=== PATIENT | male | born 1940 | race Caucasian/White ===

== ENCOUNTER 2018-10-09 06:21 | Inpatient (IN) ==
[~2018-10-09 06:21] MED LIST: MORPHINE SULFATE 15 MG TABLET.SA PO PRN; ROPIVACAINE HCL/PF 100 MG, EPINEPHrine 0.2 MG, KETOROLAC TROMETHAMINE 30 MG in NORMAL S... IJ PRN; TRANEXAMIC ACID 1,000 MG in NORMAL SALINE 100 ML IV PRN; ceFAZolin SODIUM 1 GM VIAL IV PRN
[2018-10-09] MEDS: RINGER'S SOLUTION,LACTATED 1,000 ML IV PRN ×2 (06:52→09:30)
--- NOTE | 2018-10-09 06:59 | ANES ---
Anesthesia Pre Procedure Eval Vitals/Labs: Last Vital Signs Temp 36.6 C 10/09/18 06:32 Pulse 85 10/09/18 06:32 Resp 18 10/09/18 06:32 BP 138/68 10/09/18 06:32 Pulse Ox 97 10/09/18 06:32 HOME MEDICATIONS Enalapril Maleate [Vasotec] 5 mg PO DAILY 03/30/18 [Last Taken 10/09/18 05:30] pantoprazole 40 mg tablet,delayed release 40 mg PO DAILY #30 tab 08/16/18 [Last Taken Unknown] Allergies/Adverse Reactions: Allergies Allergy/AdvReac Type Severity Reaction Status Date / Time No Known Allergies Allergy Verified 10/09/18 06:40 - Planned Procedure Planned Procedure: Left Arthroplasty Total Hip Medication List Reviewed:: Yes Allergies Verified: Yes Medical History (Last Reviewed 10/09/18 @ 06:56 by Dong Card CRNA) COPD (chronic obstructive pulmonary disease) Carpal tunnel syndrome Cough Hypertension Left knee pain Prostate cancer Surgical History (Last Reviewed 10/09/18 @ 06:57 by Dong Card CRNA) Elbow fracture Onset Date: ~1954 left H/O hernia repair Onset Date: ~1944 right inguinal H/O prostatectomy Onset Date: ~2005 [facility] (had radiation) History of colonoscopy Onset Date: 03/30/182005 [facility]-normal. 03/30/18 Dangelo-normal colonic mucosa. History of esophagogastroduodenoscopy (EGD) Onset Date: 03/30/18 03/30/18 Dangelo-Positive H.pylor. Mod to severe chronic gastritis. History of right hip replacement Onset Date: ~2013 Dr Cuevas History of tonsillectomy Onset Date: ~1969 History of total left knee replacement Onset Date: ~2014 Dr Mckenna History of vasectomy Onset Date: ~1966 Family History (Last Reviewed 10/09/18 @ 06:57 by Dong Card CRNA) Father , age 63-PR Diabetes Myocardial infarction Mother , age 80-colon cancer (dx age 77) Cancer colon cancer Hypertension Sister Alive and well Hypertension - Family Anesthesia History Family History:: no untoward family reactions to anesthesia, no familial bleeding tendencies, no family history of clotting disorders, no family history of premature - Airway/Neck/Teeth Within Normal Limits:: Yes Denture Type: Full upper Neck Exam: full range of motion Mallampatti Score: 1 Thyromental (T-M) distance: > 6 cm Mandibulo Hyoid distance: > 3 cm - Respiratory Respiratory History: COPD Respiratory Physical: lungs clear, decreased breath sounds Smoking Status: Former smoker Sleep Apnea currently treated: No Sleep Apnea by current assessment: No - Cardiovascular Cardiac History: hypertension Tolerate Activity: Fair Heart Sounds: S1 & S2, Regular - Anesthesia Assessment and Plan ASA Class: PS, III Anesthesia Type Plan: Spinal
[2018-10-09] MEDS ORDERED: ZOLPIDEM TARTRATE 5 MG TABLET PO PRN (09:44)
[2018-10-09] MEDS ORDERED: MAG HYDROX/ALUMINUM HYD/SIMETH 30 ML UDC PO PRN (09:44)
[2018-10-09] MEDS ORDERED: DEXTROSE 5%-LACTATED RINGERS 1,000 ML IV PRN (09:44)
[2018-10-09] MEDS ORDERED: MAGNESIUM HYDROXIDE 30 ML UDC PO PRN (09:44)
[2018-10-09] MEDS ORDERED: ONDANSETRON HCL/PF 2 MG/ML VIAL IV PRN (09:44)
[2018-10-09] MEDS ORDERED: MORPHINE SULFATE 2 MG/ML DISP.SYRIN IV PRN (09:44)
[2018-10-09] MEDS ORDERED: diphenhydrAMINE HCL 50 MG/ML VIAL IV PRN (09:44)
[2018-10-09] MEDS ORDERED: ACETAMINOPHEN 500 MG TABLET PO PRN (09:44)
--- NOTE | 2018-10-09 09:48 | OR ---
Operative Report - Dictated Report Narrative: Date: 10/09/2018 Preoperative diagnosis: Left hip degenerative joint disease. Postoperative diagnosis: Left hip degenerative joint disease. Procedure: Left Total hip arthroplasty. Surgeon: Abilio Mckenna M.D. [employer] Forms Developer: Jonathan La PA-C (provided an essential set of skilled, educated and assisted with transfer, positioning, prepping, draping, manipulation, traction, irrigation, suturing, and placement of dressings all of which cannot be performed by the available surgical crew) Anesthesia: Spinal and local periarticular joint injection. Complications: None Specimens: Bone for disposal. Estimated blood loss: 100 milliliters. Retained implants: Depuy Villalba size 8 femoral stem high offset. Size 56 millimeter outside diameter 3-hole Redway Gription acetabular cup. 56 millimeter outside by 40 millimeter inside diameter highly cross-linked acetabular liner. 40 millimeter diameter +5 millimeter cobalt chromium femoral head. Cancellous 6.5mm screw 35 millimeter length Indications: Mr Joseph is a 78-year-old female who has had long-standing left hip pain and arthrosis. This patient was followed in my clinic for period of time with significant complaints of left hip pain consistent with arthritic changes. He failed conservative measures including but not limited to activity modification, passage of time, medications, and other conservative measures. Patient wished to proceed with surgical treatment. The risks, benefits, and alternatives were discussed in clinic. The risks of , blood clots, bleeding, infection, nerve/tendon blood vessel/ injury, malposition of components, dislocation and/or instability of joint, intraoperative fracture, postoperative limited range of motion, persistent pain, failure of components, and need for additional procedures. Patient wished to proceed. Consent was obtained after answering all questions. Procedure: After marking the correct extremity on the floor, the patient was taken to the operating room. A timeout was performed. IV antibiotics consisting of Ancef were administered prior to the procedure. A spinal anesthetic was induced by anesthesia. A Carranza catheter was inserted. The patient was then transitioned to a lateral position on a well-padded pegboard. An axillary roll was placed. The head was in neutral position. The non- operative down leg was well-padded with SCD and ABBI hose in place. The arms were supported and padded to protect from any undue pressure on the bony prominences and nerves. A well-padded anterior and posterior pelvic and chest posts were secured in order to maintain a stable position of the pelvis. This was placed so that the pelvis was perpendicular to the floor. The body was in line with the pelvis. Once it was felt that we had protected all the bony prominences and the patient was well secured with a safety belt as well, the leg was pre-scrubbed with alcohol, prepped and draped in a standard sterile fashion. A standard anterior lateral hip incision was marked out over the greater trochanter. Ioban drapes were then placed. The skin incision was then made. Sharp dissection with a scalpel utilizing cautery for hemostasis was carried out down to the gluteus and iliotibial band fascia. This was split in line with the skin incision. The greater trochanter bursa was excised. The anterior and posterior margins of the abductor tendon were identified. The anterior 1/2-1/3 of the tendon was tagged and reflected off the greater trochanter leaving a sleeve of tendon for repair at the completion of the case. This exposed the underlying hip joint capsule. A limb length stitch was placed in the skin and referencedd off a bay on the greater trochanter for evaluation of intraoperative limb lengths. An inverted T-type capsulotomy was made extending this up to the brim of the acetabulum. Using Homans to assist with elevation of the soft tissues off the anterior, superior, and inferior aspects of the femoral neck, the hip was then placed in a figure 4 position and the femoral head was dislocated. With the leg in an externally rotated and adducted position, the cutting flag was utilized in order to bay for a standard femoral neck cut approximately a fingerbreadth above the level of the lesser trochanter. This was done with reference to pre-operative films and overall alignment. This was done while protecting the surrounding soft tissues with Homans. The femoral head was then removed and sized for guidance on preparation of the acetabulum. It was noted that there was loss of articular cartilage on both the femoral head and weightbearing portions of the acetabulum. We then returned the leg to the table and turned our attention to the acetabulum. While protecting the surrounding soft tissues, the labrum and remaining tissue in the fovea were excised using a scalpel and cautery. A series of reamers up to size 56 millimeter were utilized to prepare the acetabulum. The final reamer had good purchase and exposed the bleeding subchondral bone. The acetabulum was then thoroughly irrigated ensuring that all bony and cartilaginous materials were removed, and the final acetabular shell was impacted into place. This was placed in approximately 45 degrees of abduction and 20 degrees of anteversion utilizing the outrigger and body axis for alignment. This had a good press fit. 1 6.5mm cancellous screw was placed in the superior posterior quadrant of the acetabulum. The shell was then thoroughly irrigated and the final polyethylene was impacted into place ensuring that it seated completely. This was then protected with a sponge while we returned our attention to the femur. With the leg in a figure 4 position, utilizing Homans for soft tissue protection, a box cutting osteotome, followed by Charnley awl, followed by serial reamers and broaches were utilized in order to prepare the femur. It was found that a size 8 broach gave good axial and rotational stability. The calcar reamer was utilized in order to clean up the cut edges. The proximal femur was visualized to ensure that there were no signs of fracture. A series of heads and necks were trialed. It was found that a high offset neck and a + 5 femoral head gave good overall stability. There was minimal longitudinal instability. With the leg in the position of sleep, the femoral head was well covered. Hip range of motion was able to reach full extension and external rotation to greater than 75 degrees prior to impingement along the posterior acetabulum. The hip was able to be flexed to greater than 90 degrees with internal rotation greater than 60 degrees prior to anterior impingement. The limb lengths were near equal based on comparison to the contralateral side and the prior placed limb length stitch. At this point it was felt these were the appropriately sized femoral components as well as neck and femoral head. The trial implants were removed. The femur was thoroughly irrigated. The final implants were impacted into place, and the hip was reduced. After ensuring that there was no damage to the proximal femur, the standard periarticular joint injection of ropivacaine, Toradol, and epinephrine were injected into the joint capsule and surrounding soft tissues. Anesthesia then administered intravenous tranexamic acid. The capsule was repaired with a single interrupted #1 Vicryl. The abductor tendon was repaired to the greater trochanter utilizing #5 Ethibond through drill holes. This was oversewn with #1 Vicryl. The fascia was closed with interrupted #1 Vicryl. The wounds were thoroughly irrigated as we closed in layers. The deep and subcutaneous fat layers were closed with 0 and 3-0 Vicryl respectively. The subcutaneous tissue was closed with a running 3-0 Vicryl and the skin sabas. All sponge, needle, blade, and instrument counts were correct prior to closing the wounds. Sterile dressings consisting of xeroform, 4 x 4's, and tape were applied. The patient was awoken and transferred to her hospital bed and then to the postanesthesia care unit in stable condition. Postoperative condition: The plan is to admit to the medical/surgical inpatient floor postoperatively. There will be a projected 1 to 3 day hospital stay. Postoperatively 24 hours of IV antibiotics, pain control, physical therapy, occupational therapy, and medical comanagement will be utilized. Patient will be weightbearing as tolerated with anterior hip precautions. Postoperative films will be obtained in the recovery room.
--- NOTE | 2018-10-09 09:52 | ANES ---
Post Anesthesia Discharge - Transfer of Care Transfer of Care handoff given to nurse: Yes - Discharge from PACU Discharge from PACU when meets criteria: Yes - Alert and comfortable.
[2018-10-09] MEDS: KETOROLAC TROMETHAMINE 15 MG/ML VIAL IV SCH ×3 (10:38→23:15)
--- NOTE | 2018-10-09 10:39 | ANES ---
Post Anesthesia Assessment - Vital Signs Vitals: Last Vital Signs Temp 36.7 C 10/09/18 10:10 Pulse 59 L 10/09/18 10:26 Resp 17 10/09/18 10:26 BP 107/50 10/09/18 10:26 Pulse Ox 97 10/09/18 10:26 Airway Patency: Normal - Mental Status Level Of Consciousness: Awake, Alert, Appropriate - Pain Level Pain Score: 0 - N/V Assessment Nausea/Vomiting Presence: None Dehydration:: No
[2018-10-09] MEDS: ceFAZolin SODIUM 1 GM in DEXTROSE 5 % IN WATER 100 ML IV SCH ×6 (10:52→23:16)
[2018-10-09] MEDS: oxyCODONE HCL/ACETAMINOPHEN 1 TAB TABLET PO PRN ×3 (11:51→21:16)
[2018-10-09] MEDS: MORPHINE SULFATE 15 MG TABLET.SA PO SCH (20:25)
[2018-10-09] MEDS ORDERED: SENNOSIDES/DOCUSATE SODIUM 1 TAB TABLET PO SCH (21:00)
[2018-10-10] MEDS: oxyCODONE HCL/ACETAMINOPHEN 1 TAB TABLET PO PRN ×2 (02:58→07:48)
[2018-10-10] MEDS: KETOROLAC TROMETHAMINE 15 MG/ML VIAL IV SCH ×2 (04:03→11:04)
[2018-10-10 05:48] LABS: Hematocrit 37.8 % (42.0-52.0); Hemoglobin 11.9 gm/dL (13.5-18.0); Mean Cell Volume 88.3 fl (78-100); Mean Corpuscular Hemoglobin 27.8 pg (27-31); Mean Corpuscular Hgb Conc 31.5 g/dl (32-36); Mean Platelet Volume 9.5 fl (8-11.3); Platelet Count 255 K/mm3 (150-450); Red Blood Count 4.28 M/mm3 (4.7-6.0); Red Cell Distribution Width 14.6 % (11.5-14.0); White Blood Count 11.3 K/mm3 (4.0-10.5)
[2018-10-10 05:57] LABS: Anion Gap 11.1 mmol/L (6.8-13.8); BUN/Creatinine Ratio 23.6 (9.0-21.6); Calcium * 8.1 mg/dL (7.9-10.9); Carbon Dioxide 26.6 mmol/L (24-32.6); Estimated Creat Clear 54.4; Potassium 4.7 mmol/L (3.4-4.6)
[2018-10-10] MEDS ORDERED: PANTOPRAZOLE SODIUM 40 MG TABLET.EC PO SCH (07:00)
[2018-10-10] MEDS ORDERED: ENOXAPARIN SODIUM 40 MG/0.4 ML SYRG SC SCH (08:45)
[2018-10-10] MEDS ORDERED: ENALAPRIL MALEATE 5 MG TABLET PO SCH (09:00)
[2018-10-10] MEDS: MORPHINE SULFATE 15 MG TABLET.SA PO SCH (09:54)
--- NOTE | 2018-10-10 10:20 | DS ---
(1) Hypertension Problem: Chronic (2) Status post left knee replacement Problem: Acute (3) Acute blood loss anemia Problem: Acute Description of Stay: Mr. Joseph was admitted to the floor after undergoing left total hip arthroplasty. Tolerated this well. Was admitted to the floor postoperatively for 24 hours of IV antibiotics, pain control, medical comanagement, and occupational and physical therapy. OT and PT were consulted to assist with activities of daily living and ambulation. Was made weightbearing as tolerated with range of motion as tolerated with anterior hip precautions. Pain was initially controlled with IV regimen. This was transitioned to oral once tolerating a by mouth intake. Was resumed on home diet and medications. Had a Carranza catheter inserted and the operating room which was discontinued on post operative day 1. Lovenox SCD and ABBI hose were utilized for DVT prophylaxis. Vital signs remained stable to the hospital course. Serial labs were obtained which showed a final hemoglobin of 11.9 grams. BMP was reviewed and was stable. Physical examination throughout the hospital course showed an extremity that had sensation that was intact to light touch, palpable pulses, a benign wound, motor intact to the toes, ankle, and knee. Once an oral pain regimen was tolerated and physical therapy goals were met, it was felt that they were stable for discharge to home. Instructions: Continue with weightbearing as tolerated and range of motion as tolerated with anterior hip precautions. Keep wound clean and dry If you note any drainage or for comfort you can cover with dry gauze and tape. Change every 2-3 days as needed. Continue with physical therapy. Resume home diet. Report any fever over 101.5 Fahrenheit, uncontrolled pain, increased drainage, foul odor of drainage, new or increased calf pain or shortness of breath, or any other significant complaints. A 325mg dialy aspirin will be started after finishing anticoagulation if not allergic. Continue with ABBI hose on the operative extremity until instructed otherwise. No driving until instructed otherwise. Follow up in approximately 10-14 days. Procedures Performed: see notes below List Procedures: Left total hip arthroplasty Results and Findings: Lab Pending Results 10/10/18 05:44: WBC 11.3 H, RBC 4.28 L, Hgb 11.9 L, Hct 37.8 L, MCV 88.3, MCH 27.8, MCHC 31.5 L, RDW 14.6 H, Plt Count 255, MPV 9.5 10/10/18 05:44: Sodium 131 L, Plasma Sodium 131, Potassium 4.7 H, Chloride 98, Carbon Dioxide 26.6, Anion Gap 11.1, BUN 29 H, Creatinine 1.23, Est GFR (Non-Af Amer) 60, BUN/Creatinine Ratio 23.6 H, Random Glucose 119 H, Calcium 8.1 Discharge Location: Home Disposition: Home self-care Condition: Good Discharge Activity: Activity as tolerated, Weight bearing - with anterior hip precautions Discharge Diet: Low salt Referrals: Thelma Garcia MD [Primary Care Provider] - Additional Patient Instructions (free text): Follow up Physical Therapy at [facility] outpatient rehab department on TuesdayOctober 11 at 10:00am. Follow up Orthopedic appointment at Dr. Jose office on TuesdayOctober 24 at 9:30am. Prescriptions (Any new or edited meds): Enoxaparin Sodium [Lovenox] 40 mg SC Q24H #7 disp.syrin Morphine Sulfate [Ms Contin] 15 mg PO Q12H #20 tablet.sa oxyCODONE HCL/ACETAMINOPHEN [Percocet 5 MG/325 MG] 2 tab PO Q4H PRN #60 tab PRN Reason: Moderate Pain (Pain Scale 4-6) Sennosides/Docusate Sodium [Senokot-S] 2 tab PO HS #30 tab Complete Home Medications List: Complete Home Medication List: Enalapril Maleate [Vasotec] 5 mg PO DAILY 03/30/18 pantoprazole 40 mg tablet,delayed release 40 mg PO DAILY #30 tab 08/16/18 Enoxaparin Sodium [Lovenox] 40 mg SC Q24H #7 disp.syrin 10/10/18 Morphine Sulfate [Ms Contin] 15 mg PO Q12H #20 tablet.sa 10/10/18 Sennosides/Docusate Sodium [Senokot-S] 2 tab PO HS #30 tab 10/10/18 oxyCODONE HCL/ACETAMINOPHEN [Percocet 5 MG/325 MG] 2 tab PO Q4H PRN #60 tab 10/10/18 Amb Orders for Discharge: PT Evaluation and Treatment* Facility: [facility], Location: Rehabilitation Services
[2018-10-10 11:02] VITALS: BP 99/57
== END 2018-10-10 11:30 | disposition home or self-care (01) | DRG 470 ==
LOC: MS 06:21
PROVIDERS: ADMIT Orthopaedic Surgery; ATTEND Orthopaedic Surgery
DX: Z87.891 Personal history of nicotine dependence; M16.12 Unilateral primary osteoarthritis, left hip; J44.9 Chronic obstructive pulmonary disease, unspecified; I10 Essential (primary) hypertension; D62 Acute posthemorrhagic anemia
CPT/HCPCS: 36415; 73502; 80048; 85027; 97116; 97161; 97165; 97530; 97535